=== PATIENT | female | born 1940 | race Caucasian/White ===

== ENCOUNTER 2016-11-19 16:20 | Emergency (ER) | payer BC ==
[~2016-11-19] VITALS: Ht 165.1 cm; Wt 68.0 kg
[~2016-11-19 16:20] MED LIST: ACET-2165 PO; CAL PO; CLON0.5T4 PO; CYCL-10 PO; DOCU-144 PO; DULO60CA41 PO; ESOM20CA33 PO; ESOM40CA PO; FOLI-43 PO; FURO-149 PO; IBUP-23 PO; LACT10SO6 PO; MAGN296S PO; MORP15TA PO; MORP15TA60 PO; NA P133E41 RC; OSCD500 PO; OXYC-130 PO; POTA-88 PO; PREG100C PO; SENN-153 PO; SLOW MAG PO; TRIA1CAP2 PO; [UNRECOGNIZED DRUG - CODE] PO
[2016-11-19 16:25] VITALS: BP 145/76; PULSE 51; RESP 18; TEMP 97.6; O2SAT 99
[2016-11-19] MEDS ORDERED: HYDROcodone/ACETAMIN 7.5-325 MG TAB PO ONE (17:30)
[2016-11-19] MEDS ORDERED: KETOROLAC TROMETHAMINE 60 MG/2 ML VIAL IM ONE (17:30)
[2016-11-19 18:28] VITALS: BP 136/74; PULSE 57; RESP 18; TEMP 97.6; O2SAT 100
== END 2016-11-19 18:28 | disposition home or self-care (01) ==
LOC: SED 16:20
DX: S42.451A Displaced fracture of lateral condyle of right humerus, initial encounter for closed fracture (principal); I10 Essential (primary) hypertension; Z79.899 Other long term (current) drug therapy; W01.198A Fall on same level from slipping, tripping and stumbling with subsequent striking against other object, initial encounter; Y93.01 Activity, walking, marching and hiking; Y92.89 Other specified places as the place of occurrence of the external cause; Y99.8 Other external cause status
CPT/HCPCS: 29105; 73030; 96372; 99284; J1885

== ENCOUNTER 2017-12-29 14:57 | Emergency (ER) | payer BC ==
[~2017-12-29] VITALS: Ht 160 cm; Wt 65.3 kg
[~2017-12-29 14:57] MED LIST changes: -CYCL-10 PO; -ESOM40CA PO; -FURO-149 PO; -LACT10SO6 PO; -MORP15TA PO; -MORP15TA60 PO; -POTA-88 PO; -PREG100C PO; -TRIA1CAP2 PO; -[UNRECOGNIZED DRUG - CODE] PO
--- NOTE | 2017-12-29 15:13 | NUR ---
Patient to ER bed 6 to gown for evaluation. Side rails up. Report given to Florencia DAILY.
--- NOTE | 2017-12-29 15:15 | NUR ---
Pt is AAO x 4 and ambulatory with walker. Pt was wheeled into bed 5. Pt complains of lower back pain for a week s/p stretching. Pt states it is difficult for her to move around due to pain. Pt denies N/V, fever or trauma to back. No other injuries/complaints per patient or noted.
--- NOTE | 2017-12-29 16:12 | NUR ---
ER Dr. Rodriguez at bedside examining patient.
[2017-12-29] MEDS ORDERED: KETOROLAC TROMETHAMINE 60 MG/2 ML VIAL IM ONE (16:30)
--- NOTE | 2017-12-29 16:55 | NUR ---
Medication was given, pt tolerated well. No adverse reaction, will continue to monitor.
[2017-12-29 17:35] LABS: BILIRUBIN,URINE NEGATIVE (NEGATIVE); BLOOD, URINE 3+ (NEGATIVE); CLARITY/URINE CLOUDY (CLEAR); COLOR,URINE RED (YELLOW); GLUCOSE,URINE NEGATIVE (NEGATIVE); KETONES,URINE NEGATIVE (NEGATIVE); LEUKOCYTE ESTERASE ,URINE 1+ (NEGATIVE); NITRITE, URINE POSITIVE (NEGATIVE); PH,URINE 7.5 (5.0-8.0); PROTEIN URINE 2+ (NEGATIVE); UROBILINOGEN,URINE 0.2 (0.2-1.0)
[2017-12-29 17:56] LABS: RBC,URINE 80-100 /HPF (0-3)
[2017-12-29 17:57] LABS: BACTERIA,URINE MANY /HPF (None Seen); MUCUS,URINE 1+ /LPF (None Seen)
[2017-12-29] MEDS ORDERED: NACL 0.9% 1,000 ML IV ONE (18:45)
[2017-12-29] MEDS ORDERED: cefTRIAXone 1 GM in D5W 50 ML IV ONE (18:45)
--- NOTE | 2017-12-29 18:45 | NUR ---
ER Dr. Rodriguez at bedside explaining results to patient.
[2017-12-29 19:15] VITALS: BP_SYST 132
--- NOTE | 2017-12-29 19:15 | NUR ---
Patient does not wish to proceed with medical care recommended by Dr. Rodriguez. Patient given information related to possible complications, up to and including , which could occur as a result of leaving hospital at this time. Patient verbalizes understanding of risks involved leaving against medical advice. Patient has signed AMA form.
== END 2017-12-29 19:15 | disposition left against medical advice (07) ==
LOC: SED 14:57
DX: N39.0 Urinary tract infection, site not specified (principal); M06.9 Rheumatoid arthritis, unspecified; E78.5 Hyperlipidemia, unspecified; I10 Essential (primary) hypertension; Z90.49 Acquired absence of other specified parts of digestive tract; Z90.89 Acquired absence of other organs; Z79.899 Other long term (current) drug therapy
CPT/HCPCS: 72100; 72131; 81000; 87086; 87186; 96372; 99285; J1885

== ENCOUNTER 2020-09-14 14:09 | Emergency (ER) | payer BC ==
[~2020-09-14] VITALS: Ht 152.4 cm; Wt 45.4 kg
[~2020-09-14 14:09] MED LIST changes: -ACET-2165 PO; +ACET325T PO; -MAGN296S PO; +MAGN296S73 PO
[2020-09-14 14:15] VITALS: BP_SYST 158
--- NOTE | 2020-09-14 14:18 | NUR ---
80 y/o female presents to ER w/ c/o lac to right forehead s/p ground level fall while walking. Denies any ko or loss of consciousness. Patient is awake/alert, No neuro focal deficits noted. Introduced self to patient, positioned for comfort and safety continue to monitor.
--- NOTE | 2020-09-14 14:18 | NUR ---
Patient to ER bed 3 to gown for evaluation. Side rails up. Report given to KILLIAN Garcia.
[2020-09-14] MEDS ORDERED: LIDOCAINE 1%, 20 ML MDV 20 ML ONE (14:38)
[2020-09-14] MEDS ORDERED: BACITRACIN 1 GM OINT TP ONE (14:45)
[2020-09-14] MEDS ORDERED: LIDOCAINE 1% 10 MG/ML, 20 ML MDV SUBCUT ONE (14:45)
[2020-09-14] MEDS ORDERED: DIPH-TET-PERTUS Vaccine 0.5 ML VIAL (ADACEL) I.M. ONE (14:45)
--- NOTE | 2020-09-14 14:50 | NUR ---
KATHRYN Gardner at bedside examining patient.
--- NOTE | 2020-09-14 15:20 | NUR ---
Patient had total of 6 sutures placed by MD Zamora, tolerated procedure. Sutures intact. Wound covered w/ guaze after application of bacitracin.
[2020-09-14 15:38] VITALS: BP_SYST 158
--- NOTE | 2020-09-14 15:38 | NUR ---
Patient given written and verbal discharge instructions and verbalizes understanding. ER MD discussed with patient the results and treatment provided. Patient in stable condition. ID arm band removed. Patient educated on pain management and to follow up with PMD. Pain Scale 0/10. Opportunity for questions provided and answered. Medication side effect fact sheet provided.
== END 2020-09-14 15:38 | disposition home or self-care (01) ==
LOC: SED 14:09
DX: S01.81XA Laceration without foreign body of other part of head, initial encounter (principal); I10 Essential (primary) hypertension; E11.9 Type 2 diabetes mellitus without complications; E78.5 Hyperlipidemia, unspecified; Z90.49 Acquired absence of other specified parts of digestive tract; Z79.899 Other long term (current) drug therapy; W18.39XA Other fall on same level, initial encounter; Y93.89 Activity, other specified; Y92.89 Other specified places as the place of occurrence of the external cause; Y99.8 Other external cause status
CPT/HCPCS: 12013; 90471; 90715; 99283; J2001

== ENCOUNTER 2021-11-12 12:24 | Outpatient (CLI) | payer BC ==
[~2021-11-12 12:24] MED LIST changes: -DULO60CA41 PO; +DULO60CA42 PO
== END 2021-11-12 20:11 | disposition home or self-care (01) ==
LOC: SRD 12:24
PROVIDERS: ATTEND Internal Medicine
DX: R60.0 Localized edema (principal)
CPT/HCPCS: 93971

== ENCOUNTER 2022-10-01 09:40 | Emergency (ER) | payer BC ==
[~2022-10-01] VITALS: Ht 162.6 cm; Wt 52.2 kg
[~2022-10-01 09:40] MED LIST changes: +MAGN296S70 PO; -MAGN296S73 PO
[2022-10-01 09:54] VITALS: BP_SYST 111
[2022-10-01] MEDS ORDERED: NACL 0.9% 1,000 ML IV ONE (10:45)
[2022-10-01] MEDS ORDERED: MAG HYDROX/AL HYDROX/SIMETH 30 ML, LIDOCAINE VISCOUS 2% 15ML (PO) 15 ML, DICYCLOMINE HC... PO ONE ×3 (10:45)
--- NOTE | 2022-10-01 11:00 | NUR ---
PATIENT AMBULATORY WITH CRUTCHES ACCOMPANIED BY DAUGHTER, C/O THROAT PAIN
--- NOTE | 2022-10-01 11:05 | NUR ---
EDP SEEN PATIENT WITH ORDER.
[2022-10-01 11:30] VITALS: BP_SYST 138
[2022-10-01] MEDS ORDERED: BENZ1LOZ73 PO (11:35)
[2022-10-01] MEDS ORDERED: AMOX-520 PO (11:35)
[2022-10-01] MEDS ORDERED: FLUC200T PO (11:35)
--- NOTE | 2022-10-01 11:51 | NUR ---
EDP REASSESS PATIENT AND D/C HOME WITH INSTRUCTION.
--- NOTE | 2022-10-01 11:53 | NUR ---
Patient given written and verbal discharge instructions and verbalizes understanding. ER MD discussed with patient the results and treatment provided. Patient in stable condition. ID arm band removed. IV catheter removed intact and dressing applied, no active bleeding. Rx of AMOXICILLIN/BENZOCAINE/FLUCONAZOLE given. Patient educated on pain management and to follow up with PMD. Pain Scale 0. Opportunity for questions provided and answered. Medication side effect fact sheet provided.
== END 2022-10-01 11:52 | disposition home or self-care (01) ==
LOC: SED 09:40
DX: B37.0 Candidal stomatitis (principal); I10 Essential (primary) hypertension; E11.9 Type 2 diabetes mellitus without complications; Z79.899 Other long term (current) drug therapy
CPT/HCPCS: 99283; 96360; J2001; J7030